=== PATIENT | female | born 1955 | race Caucasian/White ===

== ENCOUNTER 2022-06-10 05:40 | Day surgery (SDC) | payer OTHER ==
[2022-06-08 12:34] LABS: BASOPHILS % (AUTO) 0.4 % (0.0-2.0); EOSINOPHILS % (AUTO) 0.6 % (0.0-4.0); HEMATOCRIT 37.7 % (36-48); HEMOGLOBIN 13.1 g/dL (12.0-16.0); LYMPHOCYTES # (AUTO) 1.7 K/uL (1.0-5.5); LYMPHOCYTES % (AUTO) 26.1 % (20.5-51.5); MEAN CORPUSCULAR HEMOGLOBIN 35 pg (27-31); MEAN CORPUSCULAR HGB CONC 35 % (32-36); MEAN CORPUSCULAR VOLUME 101 fL (79.0-98.0); MONOCYTES # (AUTO) 0.5 K/uL (0.0-1.0); MONOCYTES % (AUTO) 7.7 % (1.7-9.3); NEUTROPHILS # (AUTO) 4.1 K/uL (1.8-7.7); NEUTROPHILS % (AUTO) 65.2 % (40.0-70.0); PLATELET COUNT (AUTO) 241 K/uL (130-430); RED BLOOD CELL COUNT(AUTO) 3.73 MIL/uL (4.2-6.2); RED CELL DISTRIBUTION WIDTH 12.9 % (9.0-15.0); WHITE BLOOD COUNT (AUTO) 6.3 K/uL (4.8-10.8)
[2022-06-08 12:39] LABS: BILIRUBIN,URINE NEGATIVE (NEGATIVE); BLOOD, URINE 1+ (NEGATIVE); CLARITY/URINE CLEAR (CLEAR); COLOR,URINE YELLOW (YELLOW); GLUCOSE,URINE NEGATIVE (NEGATIVE); KETONES,URINE 1+ (NEGATIVE); LEUKOCYTE ESTERASE ,URINE NEGATIVE (NEGATIVE); NITRITE, URINE NEGATIVE (NEGATIVE); PH,URINE 5.5 (5.0-8.0); PROTEIN URINE NEGATIVE (NEGATIVE); UROBILINOGEN,URINE 0.2 (0.2-1.0)
[2022-06-08 13:35] LABS: BACTERIA,URINE RARE /HPF (None Seen); RBC,URINE 0-3 /HPF (0-3); WBC,URINE 0-3 /HPF (0-3)
[~2022-06-10] VITALS: Ht 167.6 cm; Wt 58.1 kg
[2022-06-10] MEDS ORDERED: CEFAZOLIN SOD 1 GM in D5W 50 ML IV ONE (07:00)
[2022-06-10] MEDS ORDERED: NS IRRIG SOLN 1000 ML IR ONE (08:00)
[2022-06-10] MEDS ORDERED: ONDANSETRON HCL 4 MG/2 ML VIAL ONE (08:00)
[2022-06-10] MEDS ORDERED: LIDOCAINE MPF 2% 20 MG/1 ML, 5 ML VIAL INH ONE (08:00)
[2022-06-10] MEDS ORDERED: KETOROLAC TROMETHAMINE 30 MG VIAL ONE (08:00)
[2022-06-10] MEDS ORDERED: WATER FOR IRRIGATION,STERILE 1,000 ML IRRIG.SOLN IR ONE (08:00)
[2022-06-10] MEDS ORDERED: DEXAMETHASONE SOD PHOSPHATE 4 MG/ML VIAL ONE (08:00)
[2022-06-10] MEDS ORDERED: NS 1000 ML IV.SOLN IV ONE (08:00)
[2022-06-10] MEDS ORDERED: fentaNYL CITRATE/PF 100 MCG/2 ML AMP ONE (08:00)
[2022-06-10] MEDS ORDERED: ROCURONIUM BROMIDE 10 MG/ML (ZEMURON) ONE (08:00)
[2022-06-10] MEDS ORDERED: MIDAZOLAM HCL 5 MG/5 ML VIAL ONE (08:00)
[2022-06-10] MEDS ORDERED: BUPIVACAINE /EPINEPHRINE/PF 0.5% 30 ML VIAL INJ ONE (08:00)
[2022-06-10] MEDS ORDERED: DESFLURANE 15 MIN GAS INH ONE (08:00)
[2022-06-10] MEDS ORDERED: MEPERIDINE HCL/PF 25 MG/ML DISP.SYRIN IVP PRN (09:00)
[2022-06-10] MEDS ORDERED: HYDROmorphone 1 MG/ML INJ. CARTRIDGE IVP PRN ×2 (09:00)
[2022-06-10] MEDS ORDERED: METOCLOPRAMIDE HCL 10 MG/2 ML VIAL IVP PRN (09:00)
[2022-06-10] MEDS ORDERED: LR 1,000 ML IV SCH (09:00)
[2022-06-10] MEDS ORDERED: ACETAMINOPHEN I.V. 1000 MG 100 ML IV ONE (09:14)
[2022-06-10] MEDS ORDERED: OXYCODONE/ACETAMINOPHEN 5-325 TABLET PO PRN ×2 (10:15)
[2022-06-10] MEDS ORDERED: HYDROcodone/ACETAMIN 5-325 MG TAB (NORCO/ VICODIN) PO PRN (10:15)
[2022-06-10] MEDS ORDERED: ONDANSETRON HCL 4 MG/2 ML VIAL IVP PRN (10:15)
[2022-06-10] MEDS ORDERED: SIMETHICONE 80 MG TAB.CHEW PO SCH (13:00)
[2022-06-10 14:36] VITALS: BP_SYST 138
== END 2022-06-10 13:30 | disposition home or self-care (01) ==
LOC: SDS 05:40
PROVIDERS: ATTEND Specialist
DX: D25.1 Intramural leiomyoma of uterus (principal); E11.9 Type 2 diabetes mellitus without complications; E03.9 Hypothyroidism, unspecified; E78.00 Pure hypercholesterolemia, unspecified; Z79.899 Other long term (current) drug therapy; Z20.822 Contact with and (suspected) exposure to COVID-19
CPT/HCPCS: 81000; 84703; 85025; 87081; 36415 ×2; 93005; 71046; 58674; 58558; 82962; 88305; 87426; J3490; J0690; J1100; J1885; J2250; J2405; J3010; J7060; J7030; J0131; C1727